=== PATIENT | male | born 1980 ===

== ENCOUNTER 2022-07-10 01:04 | Inpatient (IN) | payer BC ==
[2022-07-10] MEDS ORDERED: MAG HYDROX/AL HYDROX/SIMETH 30 ML CUP PO PRN (01:49)
[2022-07-10] MEDS ORDERED: MAGNESIUM HYDROXIDE 2,400 MG/10 ML CUP PO PRN (01:49)
[2022-07-10] MEDS ORDERED: hydrOXYzine pamoate 25 MG CAP PO PRN (01:53)
[2022-07-10] MEDS ORDERED: hydrOXYzine HCL 50 MG/ML 1 ML VIAL IM PRN (01:53)
[2022-07-10] MEDS ORDERED: OLANZapine 5 MG TAB PO PRN (01:53)
[2022-07-10] MEDS ORDERED: OLANZapine 10 MG VIAL IM PRN (01:53)
[2022-07-10] MEDS ORDERED: chlordiazePOXIDE 25 MG CAP PO SCH (09:00)
[2022-07-10] MEDS ORDERED: SERTRALINE 100 MG TAB PO STA (11:24)
[2022-07-10] MEDS: NICOTINE 14MG/24HR PATCH TRANSDERM SCH (12:50)
--- NOTE | 2022-07-10 13:34 | P.HP ---
Psychiatric H&P - . H&P Date: 07/10/22 History & Physical: Allergies Allergy/AdvReac Type Severity Reaction Status Date / Time No Known Allergies Allergy Verified 07/10/22 07:18 Vital Signs Temp 97.3 F L 07/10/22 06:48 Pulse 92 07/10/22 06:48 Resp 15 07/10/22 06:48 BP 167/103 07/10/22 06:48 Pulse Ox 95 07/10/22 06:48 FiO2 Intake & Output 07/09/22 07/10/22 07/10/22 18:59 06:59 18:59 Weight 79.5 kg 78.642 kg 07/10/22 13:33 IDENTIFYING DATA: Patient is a , employed, 41-year-old male with no significant psychiatric history who presents to our hospital from [facility] under petition and certification for depression and suicidal ideation. HPI: Patient presented to the hospital on 07/10/2022, brought in under petition and certification from [facility] for suicidal ideation. As per petition, filled out by the registered nurse, the patient has been endorsing suicidal ideations, and inability to sleep, and has been feeling increasingly depressed. Originally, the patient was reportedly petition by his for suicidal ideation, depression, and alcoholism. He was also reportedly found with a rope next to him prior to his presentation at [facility]. He has been undergoing significant marital issues and most recently was told by his approximately 15 days ago that she does not love him anymore. He reports that since then, he has been experiencing significant symptoms of depression including hopelessness, loneliness, difficulty focusing, excessive guilt, decreased appetite with unintentional weight loss, and suicidal ideation. The patient reports that he did not attempt suicide in any way she perform and has no previous attempt at suicides. Furthermore, the patient does report that he has been having difficulty sleeping and experiencing significant panic attacks over the past 15 days. In order to cope with his elevated anxiety, the patient does report that he has increased his alcohol use. He reports that he has been drinking up to 5 alcoholic beverages per day. The patient vehemently states that he does not want to commit suicide as he has his duty to his children, is gainfully employed, and has plenty to live for. In regards to other psychiatric symptoms, the patient denies any significant history of bipolar disorder. He denies any periods of excessive energy, grandiosity, or increased goal-directed activity. The patient denies any significant history of auditory or visual hallucinations. He denies any paranoia or other delusions. PAST PSYCHIATRIC HISTORY: Patient states that he has been struggling with depression for 20 years. He recalls being peers who prescribed Prozac, Lexapro, and most most recently started on Zoloft by his primary care provider. Patient denies any previous psychiatric hospitalizations. Patient denies any psychiatric outpatient follow-up. Patient denies any history of suicide attempts in the past. PMH: No significant medical history as per patient ALLERGIES: NO KNOWN DRUG ALLERGIES CHEMICAL DEPENDENCY HISTORY: The patient reports that he drinks about 5 alcoholic beverages per day with his last drink being on Friday. He denies any significant history of alcohol withdrawal symptoms or seizures. He reports no tobacco use. He denies any marijuana use or illicit drug use. FAMILY PSYCHIATRIC/SUBSTANCE USE HISTORY: He reports that his mother has depression. SOCIAL HISTORY: Patient is on his second marriage and is to his for 3 years after being together for 10. He has a 7-year-old son with his current and a 12-year-old daughter from a previous marriage. 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 He was born and raised in [place] and moved to [place] when he was in high school. He denies any buddhist affiliation or legal issues. MENTAL STATUS EXAM: General Appearance: Patient appears to be stated age is alert, directable, and attempts to cooperate. Patient appears to have slightly disheveled hygiene and grooming. Behavior: Patient is seated without any agitated behavior. Eye contact is appropriate. Speech: Patient's speech is fluent and nonpressured. Mood/Affect: Patient reports their mood is depressed, affect is congruent and exhausted. Suicidality/Homicidality: Patient is currently denying any suicidal or homicidal ideation, intention, and/or plan. Perceptions: Patient denies any visual hallucinations and denies any auditory hallucinations Though content/process: There is no evidence of any delusional thought content and thought process is linear and goal-directed. Patient is future oriented. Memory and concentration: AOX3, grossly intact for the purposes of this session. Can spell "WORLD" backwards Judgment and insight: Fair STRENGTHS/WEAKNESSES: Strength is that the patient is gainfully employed, has a duty to his children, and has no previous attempts at suicide. Weakness is that the patient is undergoing significant marital stressors and has increased alcohol use. INTELLECT: average IMPRESSIONS: Major depressive disorder, single episode, with anxious features Alcohol use disorder PLAN: -Patient is admitted under involuntary however converted to voluntary status to MHU for stabilization of psychiatric symptoms and safety. Patient signed adult voluntary form and medication consent and is placed in patient's chart. -Medications : Zoloft 100 mg by mouth daily for depression/anxiety Seroquel 100 mg by mouth at bedtime for insomnia Restoril 15 mg by mouth at bedtime for acute stress -Ativan PRN for agitation/aggression -Patient was counselled on substance abuse and desired to cut back on use -Patient was informed of the risks, benefits and side effects of the medication and patient verbally consented to taking the medications. Patient signed med consent form and was placed in chart. -Internal Medicine consult to perform medical evaluation and physical. -NRT - nicotine patch -SW on board for discharge planning. Encourage patient to participate in groups to work on coping skills.
[2022-07-10] MEDS ORDERED: TEMAZEPAM 15 MG CAP PO SCH (21:00)
[2022-07-10] MEDS ORDERED: QUEtiapine 100 MG TAB PO SCH (21:00)
[2022-07-11 07:05] VITALS: BP 125/81; PULSE 123; RESP 16; TEMP 98.1
[2022-07-11] MEDS: ACETAMINOPHEN TAB 325 MG TAB PO PRN ×2 (08:58→14:52)
[2022-07-11] MEDS: NICOTINE 14MG/24HR PATCH TRANSDERM SCH (08:59)
[2022-07-11] MEDS ORDERED: SERTRALINE 100 MG TAB PO SCH (09:00)
[2022-07-11] MEDS ORDERED: NICOTINE 14MG/24HR PATCH TRANSDERM SCH (09:00)
--- NOTE | 2022-07-11 11:37 | P.DS ---
Providers Date of admission: 07/10/22 06:50 Expected date of discharge: 07/11/22 Attending physician: Kee Koch MD Consults: 07/10/22 01:49 Consult Physician Routine Consulting Provider: Makenzie Figueroa Consult Reason/Comments: H&P and medical Do you want consulting provider notified?: Yes Primary care physician: Caleb Turcios - Discharge Diagnosis(es) (1) Major depressive disorder Current Visit: Yes Status: Acute Priority: High (2) Alcohol use disorder Current Visit: Yes Status: Chronic Priority: Medium Hospital Course: Admission HPI: Patient is a , employed, 41-year-old male with no significant psychiatric history who presents to our hospital from [facility] under petition and certification for depression and suicidal ideation. Patient presented to the hospital on 07/10/2022, brought in under petition and certification from [facility] for suicidal ideation. As per petition, filled out by the registered nurse, the patient has been endorsing suicidal ideations, and inability to sleep, and has been feeling increasingly depressed. Originally, the patient was reportedly petition by his for suicidal ideat ion, depression, and alcoholism. He was also reportedly found with a rope next to him prior to his presentation at [facility]. He has been undergoing significant marital issues and most recently was told by his approximately 15 days ago that she does not love him anymore. He reports that since then, he has been experiencing significant symptoms of depression including hopelessness, loneliness, difficulty focusing, excessive guilt, decreased appetite with unintentional weight loss, and suicidal ideation. The patient reports that he did not attempt suicide in any way she perform and has no previous attempt at suicides. Furthermore, the patient does report that he has been having difficulty sleeping and experiencing significant panic attacks over the past 15 days. In order to cope with his elevated anxiety, the patient does report that he has increased his alcohol use. He reports that he has been drinking up to 5 alcoholic beverages per day. The patient vehemently states that he does not want to commit suicide as he has his duty to his children, is gainfully employed, and has plenty to live for. In regards to other psychiatric symptoms, the patient denies any significant history of bipolar disorder. He denies any periods of excessive energy, grandiosity, or increased goal-directed activity. The patient denies any significant history of auditory or visual hallucinations. He denies any paranoia or other delusions. Patient states that he has been struggling with depression for 20 years. He recalls being peers who prescribed Prozac, Lexapro, and most most recently [facility] on Zoloft by his primary care provider. Patient denies any previous psychiatric hospitalizations. Patient denies any psychiatric outpatient follow- up. Patient denies any history of suicide attempts in the past. Hospital course: Upon admission to the unit patient was initially endorsing significant symptoms of depression and stress reaction. Patient was however directable and agreeable to commence treatment. Patient got along well with other patients on the unit and followed unit protocol. Patient was compliant with the medications and denied any side effects throughout hospital course. Patient was started on Zoloft and Seroquel for depression/anxiety/insomnia. Restoril was added to his regimen for acute stress reaction. Patient spoke of his stressors and engaged in therapy both group and individual. Patient was also seen by medical team for history and physical exam. Over the course the hospitalization, the patient displayed significant improvement in regards to his target symptoms of depression and insomnia. He reports that his anxiety has improved as well. The patient expresses a strong desire to live for himself and for his family and is future and goal oriented. He also plans to go to rehab for his alcohol use. On the day of discharge, the patient vehemently denying any suicidal or homicidal ideation, intention, and/or plan. He is not reporting any auditory or visual hallucinations. He reports no paranoia or other delusions. He denies any access to firearms or other weapons. The patient was counseled on his medications and need for regular compliance encouraged to follow-up with an outpatient provider for mental health and for primary care. Prior to discharge, family meeting was arranged by clinical social work aide to answer any questions and ensure safety. The patient was also evaluated by the medical team. He reports no chest pain, shortness of breath, headache, withdrawal symptoms, or any other medical issues at this time. Mental status exam: General Appearance: Patient appears to be stated age is alert, pleasant, and cooperative. Patient is in no acute distress and has fair hygiene and grooming Behavior: Patient is calmly seated without any agitated behavior. Speech: Patient's speech is fluent and nonpressured. Mood/Affect: Patient reports their mood is "much better", affect is congruent and euthymic with appropriate range. Suicidality/Homicidality: Patient denies having any suicidal or homicidal ideation intent or plan. Perceptions: Patient denies any auditory or visual hallucinations. Though content/process: There is no evidence of any delusional thought content and thought process is linear and goal-directed. Patient is future and goal oriented. Memory and concentration: AOX3, grossly intact for the purposes of this session. Can spell "WORLD" backwards correctly. Judgment and insight: Improved with guarded prognosis Impression: Major depressive disorder, single episode, with anxious features Alcohol use disorder Plan: -Continue with discharge today as patient has improved and stabilized psychiatrically and is not currently an imminent threat to himself and/or others. Patient will remain at chronically elevated risk due to his alcohol use and ongoing marital stressors. -Continue medications: Zoloft 20 mg by mouth daily for depression/anxiety Seroquel 100 g by mouth at bedtime for insomnia Restoril 15 mg by mouth at bedtime for acute stress for 14 days only -Patient was counseled on the need for medication compliance and appropriate follow-up at mental health and also primary care for medical issues. Patient verbalized understanding and agreed. -Social work to arrange for and conduct family meeting to ensure safety upon discharge and answer any questions/concerns. Social work also to arrange for patients follow up appointments with [facility] for psychiatric care along with follow up with primary care provider. -Patient counseled on abstaining from recreational drugs and marijuana and alcohol. Was informed/educated on the adverse effects on their physical and mental health. Patient verbally agreed and understood. Patient plans to go to inpatient substance abuse rehabilitation for alcohol use disorder. -Patient was instructed to return to the hospital or seek immediate medical care if their psychiatric or medical symptoms do worsen or reoccur. -Psychoeducation and supportive therapy provided to patient. Risks and benefits of pharmacological treatment versus the risks and benefits of nontreatment weight and discussed. Informed consent discussion held. Common side effects of psychotropics discussed such as, but not limited to headache, GI disturbance, sexual dysfunction, movement disorders, sedation, and orthostatic hypotension. Life threatening and blackbox warnings of prescribed medications also discussed. Potential risks of operating a vehicle or heavy machinery discussed with patient at length. Advised on importance of compliance and a reliable and responsible manner. Patient advised to review FDA consumer labeling of all medications prior to taking. Patient verbalized understanding of potential risks, and agrees with current treatment plan. Patient advised to medically contact physician/emergency personnel if any acute changes in condition occur. Vital Signs Temp 98.1 F 07/11/22 06:43 Pulse 123 H 07/11/22 06:43 Resp 16 07/11/22 06:43 BP 125/81 07/11/22 06:43 Pulse Ox 95 07/10/22 06:48 FiO2 Intake & Output 07/10/22 07/11/22 07/11/22 18:59 06:59 18:59 Weight 78.642 kg Allergies Allergy/AdvReac Type Severity Reaction Status Date / Time No Known Allergies Allergy Verified 07/10/22 07:18 Patient Condition at Discharge: Stable Plan - Discharge Summary Discharge Rx Participant: Yes New Discharge Prescriptions: New QUEtiapine [SEROquel] 100 mg PO HS 30 Days tab Temazepam [Restoril] 15 mg PO HS 14 Days cap Sertraline [Zoloft] 100 mg PO DAILY 30 Days tab Discharge Medication List QUEtiapine [SEROquel] 100 mg PO HS 30 Days tab 07/11/22 [Rx] Sertraline [Zoloft] 100 mg PO DAILY 30 Days tab 07/11/22 [Rx] Temazepam [Restoril] 15 mg PO HS 14 Days cap 07/11/22 [Rx] Follow up Appointment(s)/Referral(s): Psychological, [place] [Other] - 07/13/22 12:00 pm (Dr. Seth) [facility], On License Of [facility] [Other] - 1 Week Patient Instructions/Handouts: How to Stop Smoking (DC), Abuse of Alcohol (DC) Discharge Disposition: HOME SELF-CARE
[2022-07-11 13:47] VITALS: BMI 25.7
[2022-07-11 20:18] LABS: Chol/HDL Ratio 2.44 Ratio; LDL Cholesterol,Calculated 72.3 mg/dL (0.0-131.0); VLDL Calculation 19.66 mg/dL (5.00-40.00)
== END 2022-07-11 19:15 | disposition home or self-care (01) | DRG 881 ==
LOC: 3MHU 06:50
PROVIDERS: ADMIT Psychiatry & Neurology Psychiatry; ATTEND Psychiatry & Neurology Psychiatry
DX: F32.9 Major depressive disorder, single episode, unspecified (principal); R45.851 Suicidal ideations; F10.20 Alcohol dependence, uncomplicated; Z28.310 Unvaccinated for COVID-19; G47.00 Insomnia, unspecified; F43.0 Acute stress reaction; Z71.41 Alcohol abuse counseling and surveillance of alcoholic; Z71.51 Drug abuse counseling and surveillance of drug abuser; Z81.8 Family history of other mental and behavioral disorders
CPT/HCPCS: 80061; 83036; 84443